=== PATIENT | female | born 1965 | race Caucasian/White ===

== ENCOUNTER → 2018-08-03 | Outpatient (CLI) | payer BC ==
[~2018-08-03] MED LIST: ACYC-57 PO; DOXY-181 PO; HYDR-3503 PO; IBUP800T37 PO; LEV500 PO; LISI2.5T60; OXYC-869 PO; PER PO; PRED-1 PO
--- NOTE | 2018-08-04 08:35 | RADIOLOGY IMAGING REPORT ---
FACILITY: [facility] PATIENT NAME: TABITHA MORTENSEN : [id number] MR: [id number] V: [id number] EXAM DATE: ORDERING PHYSICIAN: CLARI ACEVES TECHNOLOGIST: Kirstie Combs PROCEDURE:BILATERAL DIGITAL SCREENING MAMMOGRAM WITH CAD ASSISTED INTERPRETATION & 3D TOMOSYNTHESIS COMPARISON:Prior mammograms 10/07/11, 08/22/11. INDICATIONS:screening FINDINGS: Scattered fibroglandular densities are seen throughout the breasts. The parenchymal pattern has remained stable allowing for difference in mammographic technique & patient positioning. There is invasion of the Left nipple which appears stable when compared to the prior mammograms. The patient states this post surgical in nature. DIAGNOSTIC CATEGORY 2--BENIGN FINDING. RECOMMENDATIONS: ROUTINE MAMMOGRAM AND CLINICAL EVALUATION. IMPRESSION: BIRADS 2: Benign finding. No significant abnormality is seen. Dictated by: Chelo Condon M.D. on 08/03/2018 at 15:58 Transcribed by: [email or web address] on 08/03/2018 at 16:08 Approved by: Chelo Condon M.D. on 08/04/2018 at 8:34 [facility]
== END ==
LOC: MAMO 04:28
PROVIDERS: ATTEND Surgery
DX: N60.12 Diffuse cystic mastopathy of left breast (principal); N61.0 Mastitis without abscess
CPT/HCPCS: 77063; 77067